=== PATIENT | male | born 1980 | race Caucasian/White ===

== ENCOUNTER 2023-11-30 09:45 | Outpatient (CLI) | payer BC, SELFPAY ==
--- NOTE | 2023-11-30 09:57 | CT_ITS ---
WS: [id number] CT ABDOMEN AND PELVIS WITH CONTRAST HISTORY: RLQ PAIN, RUQ PAIN TECHNIQUE: Imaging performed of the abdomen and pelvis with IV contrast. Single phase imaging of the abdomen. Coronal and sagittal reformats are submitted. All CT scans at [facility] use at [facility] one of these dose optimization techniques: automated exposure control; mA and/or kV adjustment per patient size (includes targeted exams where dose is matched to clinical indication); or iterative re construction. IV CONTRAST: Omnipaque 350; 100 mL IV. Oral contrast: No DLP: 384.36 mGy.cm COMPARISON: None available. Lower thorax: Lung bases are clear. Heart is normal size. No hiatal hernia. Liver/biliary system: Normal size liver. There is too small to characterize hypodensities in the RIGH T lobe of the liver. These are much too small to characterize. These may be small cysts. No bile duct dilatation. Gallbladder: Normal. No gallstones or wall thickening. No pericholecystic fluid. Pancreas: Pancreatic head is partially obscured by adjacent bowel. No abnormality identified. No duct dilatation or atrophy. Spleen: Normal size spleen. No mass or infarct. Adrenal glands: Normal. Right kidney: Extrarenal pelvis. No obstruction. Left kidney: Normal. Aorta: Normal. Lymphadenopathy: None. Free fluid: None. GI tract: Mild thickening at the GE junction. No mass or abnormal enhancement. Normal appearance of t he stomach. No small bowel obstruction. The appendix is not visualized but there are no secondary fin dings of appendicitis. No colon obstruction. Abdominal wall: Unremarkable abdominal wall. No hernia. Pelvis: No free fluid or adenopathy within the pelvis. Central prostate gland calcifications. Bones: There are a few scattered sclerotic foci within the bones of the pelvis and hips. With no hist ory of malignancy consistent with small benign bone islands. IMPRESSION: 1. No acute abdominal or pelvic abnormalities are identified. 2. The appendix is not identified. No secondary findings of appendicitis. 3. No GI tract obstruction. 4. No renal obstruction. 5. Too small to characterize hypodensities in the RIGHT lobe of the liver. 6. No ascites or adenopathy.
[2023-11-30] MEDS: iohexol 350 mg/mL 500 mL Btl (per mL) IV (10:29)
== END 2023-11-30 09:46 | disposition home or self-care (01) ==
LOC: RAD 09:45
PROVIDERS: PCP Family Medicine; Visit Provider Family Medicine
DX: R10.31 Right lower quadrant pain (principal); R10.11 Right upper quadrant pain
CPT/HCPCS: 74177; Q9967